=== PATIENT | male | born 1955 ===

== ENCOUNTER 2016-11-25 13:02 | Outpatient (RCR) | payer MEDICARE, OTHER ==
--- NOTE | 2016-12-01 09:56 | Consultation ---
History of Present Illness General Date patient seen: November 25, 2016 Time patient seen: 13:00 Referring physician: Dr. Lawrence Reason for Consultation: evaluation for hyperbarric treatment Present Illness HPI 61 year old male with hx of Diabetes Mellitus with recent right knee surgery and infected surgical wound, refractory to conventional treatment [place] [facility] [place] [facility] [place]ric treatment. Patient History Healthcare decision maker Resuscitation status Advanced Directive on File Past Medical/Surgical History Past Medical/Surgical History: (1) Diabetes mellitus Review of Systems All Other Systems: negative except mentioned in HPI Physical Exam General Appearance: WD/WN Lines, tubes and drains: peripheral HEENT: normocephalic, atraumatic Neck: non-tender, normal alignment Respiratory/Chest: chest wall non-tender, lungs clear Cardiovascular/Chest: normal peripheral pulses, normal rate Abdomen: normal bowel sounds, non tender Extremities: normal range of motion, inflammation - right knee surgical deep wound 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 OLGA LIDIA TABARES December 01, 2016 09:56
== END 2016-12-15 | disposition home or self-care (01) ==
LOC: WCC 13:02
DX: T86.821 Skin graft (allograft) (autograft) failure (principal); T81.32XA Disruption of internal operation (surgical) wound, not elsewhere classified, initial encounter; X58.XXXA Exposure to other specified factors, initial encounter; Y93.9 Activity, unspecified; Z95.5 Presence of coronary angioplasty implant and graft; I51.9 Heart disease, unspecified; E11.22 Type 2 diabetes mellitus with diabetic chronic kidney disease; N18.6 End stage renal disease; Z99.2 Dependence on renal dialysis; Z79.4 Long term (current) use of insulin; Z79.02 Long term (current) use of antithrombotics/antiplatelets; Z88.0 Allergy status to penicillin
CPT/HCPCS: 11043; 97605; G0463